=== PATIENT | female | born 2000 | race Caucasian/White ===

== ENCOUNTER 2020-08-30 17:39 | Emergency (ER) | payer OTHER ==
[~2020-08-30 17:39] MED LIST: CARAFATE S500 MG/TSP PO; ZANTAC150 MG PO; ZOFRAN4 MG PO
[2020-08-30 20:47] LABS: BILIRUBIN 2+ mg/dL (NEGATIVE); BLOOD NEGATIVE Ery/uL (NEGATIVE); CLARITY CLEAR (CLEAR); COLOR YELLOW (YELLOW); GLUCOSE (U) NORMAL (NORMAL); LEUKOCYTES TRACE Leu/uL (NEGATIVE); NITRITE NEGATIVE (NEGATIVE); PROTEIN NEGATIVE (NEGATIVE); SPECIFIC GRAVITY >=1.030 (1.001-1.030)
[2020-08-30 20:55] LABS: AMPHETAMINES NEGATIVE (NEGATIVE); BARBITURATES NEGATIVE (NEGATIVE); ECSTASY (MDMA) NEGATIVE (NEGATIVE); MARIJUANA (THC) NEGATIVE (NEGATIVE); METHADONE NEGATIVE (NEGATIVE); OPIATES NEGATIVE (NEGATIVE); OXYCODONE NEGATIVE (NEGATIVE)
[2020-08-30 21:04] LABS: BACTERIA 2+; SQUAMOUS EPITHELIAL CELLS >50
== END 2020-08-30 21:32 | disposition left against medical advice (07) ==
LOC: FER 17:39
PROVIDERS: Nurse Practitioner Family
DX: R10.84 Generalized abdominal pain (principal); R11.0 Nausea; Z53.8 Procedure and treatment not carried out for other reasons
CPT/HCPCS: 80305; 81001; 99284

== ENCOUNTER 2022-03-20 10:40 | Inpatient (IN) | payer OTHER ==
[~2022-03-20] VITALS: Ht 165.1 cm; Wt 128.8 kg
[2022-03-20 11:22] LABS: BILIRUBIN NEGATIVE (NEGATIVE); BLOOD NEGATIVE Ery/uL (NEGATIVE); CLARITY CLEAR (CLEAR); COLOR YELLOW (YELLOW); GLUCOSE (U) NORMAL (NORMAL); LEUKOCYTES NEGATIVE Leu/uL (NEGATIVE); NITRITE NEGATIVE (NEGATIVE); PROTEIN NEGATIVE (NEGATIVE); SPECIFIC GRAVITY 1.025 (1.001-1.030); UROBILINOGEN 0.2 mg/dL (0.2-1.0)
[2022-03-20 11:28] LABS: AMPHETAMINES NEGATIVE (NEGATIVE); BARBITURATES NEGATIVE (NEGATIVE); ECSTASY (MDMA) NEGATIVE (NEGATIVE); MARIJUANA (THC) NEGATIVE (NEGATIVE); METHADONE NEGATIVE (NEGATIVE); OPIATES NEGATIVE (NEGATIVE); OXYCODONE NEGATIVE (NEGATIVE)
[2022-03-20 11:43] LABS: HGB 13.4 g/dl (12.5-16.0); MCHC 34.4 g/dL (32.0-36.0); MCV 90.3 fL (78.0-100.0); MPV 12.2 fL (6.0-9.5); RBC 4.32 M/uL (4.20-5.40); RDW 13.7 % (11.5-14.0); WBC 9.1 K/uL (4.0-10.5)
[2022-03-20 18:00] LABS: BILIRUBIN NEGATIVE (NEGATIVE); BLOOD NEGATIVE Ery/uL (NEGATIVE); CLARITY CLEAR (CLEAR); COLOR YELLOW (YELLOW); GLUCOSE (U) NORMAL (NORMAL); LEUKOCYTES NEGATIVE Leu/uL (NEGATIVE); NITRITE NEGATIVE (NEGATIVE); PROTEIN NEGATIVE (NEGATIVE); SPECIFIC GRAVITY >=1.030 (1.001-1.030); UROBILINOGEN 0.2 mg/dL (0.2-1.0); pH 6.5 (5.0-9.0)
[2022-03-21 06:40] LABS: HCT 34.7 % (37.0-47.0); HGB 11.7 g/dl (12.5-16.0); MCH 30.7 pg (25.0-31.0); MCHC 33.7 g/dL (32.0-36.0); MCV 91.1 fL (78.0-100.0); RBC 3.81 M/uL (4.20-5.40); RDW 13.7 % (11.5-14.0)
== END 2022-03-22 12:30 | disposition home or self-care (01) | DRG 788 ==
LOC: FOD 10:40 → FOB 10:40 → FOD 12:59 → FOB 03-22 12:30
PROVIDERS: ADMIT Specialist
PROC: 4A1HXCZ Monitoring of Products of Conception, Cardiac Rate, External Approach (ICD-10-PCS; 2022-03-20)
PROC: 10D00Z1 Extraction of Products of Conception, Low, Open Approach (ICD-10-PCS; principal; 2022-03-20 16:00)
DX: O36.8330 Maternal care for abnormalities of the fetal heart rate or rhythm, third trimester, not applicable or unspecified (principal); O99.214 Obesity complicating childbirth; Z20.822 Contact with and (suspected) exposure to COVID-19; Z3A.39 39 weeks gestation of pregnancy; Z37.0 Single live birth; O34.211 Maternal care for low transverse scar from previous cesarean delivery
CPT/HCPCS: 36415; 76818; 80305; 81003; 86850; 86900; 86901; 90686; J0456; J0690; J1885; J2274; J2370; J2405; J3010; J7050; J7120; U0002